=== PATIENT | female | born 1985 ===

== ENCOUNTER 2018-07-21 22:39 | Emergency (ER) | payer MEDICAID ==
[~2018-07-21] VITALS: Ht 165.1 cm; Wt 70.0 kg
[~2018-07-21 22:39] MED LIST: LORA0.5T PO; PREN1TAB60 PO
--- NOTE | 2018-07-21 22:53 | NUR ---
PT HERE FOR [facility] AND HAS HX OF MIGRAINES. VSS. PT HAS NAUSEA AND PHOTOPHOBIA WITH DIZZINESS. 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 PT ABLE TO MOVE ALL EXTEMITIES AND IN NEUROLOGICALLY INTACT. TECH AT BEDSIDE DOING EKG. CALL LIGHT IN REACH
[2018-07-21] MEDS ORDERED: PROCHLORPERAZINE 5 MG/ML, 2ML ONE (23:30)
[2018-07-21] MEDS ORDERED: DIPHENHYDRAMINE 50 MG/ML, 1ML IVPush ONE (23:30)
[2018-07-21] MEDS ORDERED: KETOROLAC 30 MG/1 ML IVPush ONE (23:30)
[2018-07-21] MEDS ORDERED: PROCHLORPERAZINE 5 MG/ML, 2ML IVPush ONE (23:30)
[2018-07-21] MEDS ORDERED: KETOROLAC 30 MG/1 ML ONE (23:31)
[2018-07-21] MEDS ORDERED: DIPHENHYDRAMINE 50 MG/ML, 1ML ONE (23:31)
[2018-07-21 23:35] LABS: BASOPHILS # (AUTO) 0.03 x10^3/uL (0-0.1); BASOPHILS % (AUTO) 1 % (0-1); EOSINOPHILS # (AUTO) 0.15 x10^3/uL (0-0.4); EOSINOPHILS % (AUTO) 3 % (1-7); LYMPHOCYTES # (AUTO) 2.75 x10^3/uL (1-3.4); LYMPHOCYTES % (AUTO) 49 % (22-44); MD NO; MEAN CORPUSCULAR VOLUME 94.3 fL (80-100); MEAN PLATELET VOLUME 8.4 fL (7.4-10.4); MONOCYTES # (AUTO) 0.33 x10^3/uL (0.2-0.8); MONOCYTES % (AUTO) 6 % (2-9); NEUTROPHILS # (AUTO) 2.34 x10^3/uL (1.8-6.8); NEUTROPHILS % (AUTO) 42 % (42-75); PLATELET COUNT 245 x10^3/uL (130-400); RED BLOOD COUNT 4.18 x10^6/uL (3.82-5.3); RED CELL DISTRIBUTION WIDTH 13.8 % (9.6-15.2)
[2018-07-21 23:46] LABS: ALANINE AMINOTRANSFERASE 28 U/L (12-78); ALBUMIN 3.9 g/dL (3.4-5.0); ANION GAP 6 mmol/L (5-15); CHLORIDE 111 mmol/L (98-107)
[2018-07-21 23:51] LABS: ALKALINE PHOSPHATASE 72 U/L (45-117); BILIRUBIN,TOTAL 0.3 mg/dL (0.2-1.0); TOTAL PROTEIN 7.3 g/dL (6.4-8.2)
[2018-07-22 01:00] VITALS: BP 125/71
--- NOTE | 2018-07-22 01:02 | NUR ---
pt moved to room 3. Pt signed consent for LP. lp kit at bedside. call light in reach
--- NOTE | 2018-07-22 01:15 | NUR ---
Pt refused lp. pt to be discharged.
--- NOTE | 2018-07-22 01:24 | NUR ---
Patient given discharge instructions and they have confirmed that they understand the instructions. Patient ambulatory with steady gait.
== END 2018-07-22 02:05 | disposition home or self-care (01) ==
LOC: ED 23:09
DX: G43.009 Migraine without aura, not intractable, without status migrainosus (principal)
CPT/HCPCS: 36415; 80053; 84703; 85025; 96374; 96375; 99283; J0780; J1200; J1885